=== PATIENT | male | born 1950 | race Caucasian/White ===

== ENCOUNTER → 2018-03-07 | Outpatient (CLI) | payer MEDICARE ==
[~2018-03-07] MED LIST: SINCALIDE (KINEVAC) 5 MCG ONE
== END | disposition home or self-care (01) ==
LOC: RAD 09:36
PROVIDERS: ATTEND Internal Medicine Gastroenterology
DX: R10.13 Epigastric pain (principal); R11.0 Nausea; R14.0 Abdominal distension (gaseous); R63.4 Abnormal weight loss
CPT/HCPCS: 78227; A9537; J2805

== ENCOUNTER 2018-08-08 21:17 | Emergency (ER) | payer OTHER, MEDICARE ==
[~2018-08-08] VITALS: Ht 177.8 cm; Wt 109.4 kg
[2018-08-08 21:20] VITALS: BP 153/90
--- NOTE | 2018-08-08 23:18 | NUR ---
DC EDUCATION PROVIDED, PT DEMONSTRATES UNDERSTANDING. PT AMBULATED STEADILY TO DC WITH RN.
== END 2018-08-08 23:20 | disposition home or self-care (01) ==
LOC: ED 23:18
DX: S46.812A Strain of other muscles, fascia and tendons at shoulder and upper arm level, left arm, initial encounter (principal); Z90.89 Acquired absence of other organs; V49.88XA Car occupant (driver) (passenger) injured in other specified transport accidents, initial encounter; Y93.89 Activity, other specified; Y92.89 Other specified places as the place of occurrence of the external cause; Y99.8 Other external cause status
CPT/HCPCS: 99283